=== PATIENT | female | born 2000 | race Caucasian/White ===

== ENCOUNTER 2020-12-07 13:15 | Inpatient (IN) | payer OTHER ==
[2020-12-07 14:10] LABS: #Eosinphils 0.3 10x3/uL (0.0-0.5); #Monocytes 0.8 10x3/uL (0.0-1.1); #Neutrophils 6.9 10x3/uL (1.5-8.4); %Basophils 0.4 % (0.0-2.0); %Eosinophils 2.7 % (0.0-6.0); %Lymphocytes 15.7 % (18.0-47.0); %Monocytes 8.3 % (0.0-10.0); %Neutrophils 72.6 % (40.0-75.0); Hemoglobin 11.8 g/dL (12.0-15.5); Mean Corpuscular Hemoglobin 30.2 pg (27.0-33.0); Mean Corpuscular Volume 91.6 fl (81.6-98.3); Platelet Count 278 10x3/uL (150-450); RBC Distribution Width 12.2 % (11.5-14.5); Red Blood Cell (RBC) Count 3.91 10x6/uL (3.90-5.03); White Blood Cell (WBC) Count 9.5 10x3/uL (3.5-10.5)
[2020-12-07 14:15] LABS: BHCG - Serum Negative (NEGATIVE); Pregs Control Background? CLEAR/WHITE (CLR/WHITE); Pregs Control Bar Appear? YES (CONTROL BAR)
[2020-12-07 14:22] LABS: ALT (SGPT) 10 U/L (8-55); AST (SGOT) 10 U/L (5-30); Albumin 3.7 g/dL (3.5-5.0); Alkaline Phosphatase 32 U/L (40-100); Anion Gap 13 mmol/L (10-20); BUN (Urea Nitrogen) 7 mg/dL (8.4-21.0); Bilirubin, Total 0.4 mg/dL (0.2-1.2); Calc. Creatinine Clearance 0 mL/min (70-130); Calcium 8.4 mg/dL (7.8-10.44); Carbon Dioxide 22 mmol/L (22-29); Chloride 110 mmol/L (98-107); Globulin 2.3 g/dL (2.4-3.5); Glucose 86 mg/dL (70-105); Lipase 345 U/L (8-78); Potassium 3.2 mmol/L (3.5-5.1); Sodium 142 mmol/L (136-145)
[2020-12-07] MEDS ORDERED: Fentanyl 100 MCG/2 ML VIAL ONE ×2 (15:21→16:17)
[2020-12-07] MEDS ORDERED: Ondansetron ODT 4 MG TAB PO PRN (16:10)
[2020-12-07] MEDS ORDERED: Ondansetron PF 4 MG/2 ML Vial IVP PRN (16:10)
[2020-12-07] MEDS ORDERED: HYDROcodone/Acetaminophen 10/325 mg Tablet PO PRN (16:10)
[2020-12-07] MEDS ORDERED: Sodium Chloride 0.9% 1,000 ML IV SCH (16:15)
[2020-12-07] MEDS ORDERED: Ketorolac Tromethamine 30 MG/ML VIAL ONE (18:25)
[2020-12-07] MEDS: Morphine 4 MG/ML VIAL SLOW IVP PRN (19:12)
[2020-12-07] MEDS ORDERED: Fentanyl 100 MCG/2 ML VIAL SLOW IVP PRN (19:21)
[2020-12-07 19:41] VITALS: BMI 21.5
[2020-12-07] MEDS: Ketorolac Tromethamine 30 MG/ML VIAL IVP PRN (20:37)
[2020-12-07] MEDS ORDERED: Famotidine 20 MG TAB PO SCH (21:00)
[2020-12-07] MEDS ORDERED: Potassium Chloride 20 MEQ in Premix Bag 1 BAG IVPB SCH (21:30)
[2020-12-07] MEDS ORDERED: busPIRone HCl 5 MG TAB PO SCH (21:30)
[2020-12-07] MEDS ORDERED: Pantoprazole 40 MG VIAL IVP SCH (21:30)
[2020-12-07] MEDS ORDERED: FLU VACC QS2021-22(6MOS UP)/PF 60 MCG/0.5 ML SYRINGE IM ONE (21:30)
[2020-12-07] MEDS: Pantoprazole 40 MG VIAL ONE ×2 (22:20→22:29)
[2020-12-07] MEDS: Sodium Chloride 0.9% 1,000 ML IV SCH (22:24)
[2020-12-08] MEDS ORDERED: Potassium Chloride 20 MEQ in Premix Bag 1 BAG IVPB SCH (04:00)
[2020-12-08] MEDS: Morphine 4 MG/ML VIAL SLOW IVP PRN ×5 (04:15→20:31)
[2020-12-08] MEDS: Ketorolac Tromethamine 30 MG/ML VIAL IVP PRN ×2 (05:30→23:45)
[2020-12-08 06:47] LABS: #Eosinphils 0.3 10x3/uL (0.0-0.5); #Monocytes 0.7 10x3/uL (0.0-1.1); #Neutrophils 6.2 10x3/uL (1.5-8.4); %Basophils 0.4 % (0.0-2.0); %Eosinophils 2.8 % (0.0-6.0); %Lymphocytes 21.8 % (18.0-47.0); %Monocytes 7.9 % (0.0-10.0); %Neutrophils 66.6 % (40.0-75.0); Hemoglobin 11.7 g/dL (12.0-15.5); Mean Corpuscular HGB CONC 32.8 g/dL (32.0-36.0); Mean Corpuscular Hemoglobin 30.5 pg (27.0-33.0); Platelet Count 228 10x3/uL (150-450); RBC Distribution Width 12.2 % (11.5-14.5); Red Blood Cell (RBC) Count 3.84 10x6/uL (3.90-5.03); White Blood Cell (WBC) Count 9.3 10x3/uL (3.5-10.5)
[2020-12-08] MEDS: Pantoprazole 40 MG VIAL IVP SCH (07:10)
[2020-12-08 07:26] LABS: Anion Gap 12 mmol/L (10-20); BUN (Urea Nitrogen) 6 mg/dL (8.4-21.0); Calc. Creatinine Clearance 152 mL/min (70-130); Calcium 8.3 mg/dL (7.8-10.44); Carbon Dioxide 22 mmol/L (22-29); Chloride 112 mmol/L (98-107); Glucose 88 mg/dL (70-105); Lipase 737 U/L (8-78); Sodium 142 mmol/L (136-145)
[2020-12-08] MEDS: Sodium Chloride 0.9% 1,000 ML IV SCH ×2 (07:31→10:00)
[2020-12-08] MEDS ORDERED: lamoTRIgine 25 MG TAB PO SCH ×2 (10:30→11:45)
[2020-12-08] MEDS ORDERED: busPIRone HCl 5 MG TAB PO SCH ×2 (11:00→11:30)
[2020-12-08] MEDS: Enoxaparin Sodium 40 MG/0.4 ML SYRINGE SC SCH (11:20)
[2020-12-08 14:45] LABS: SARS-CoV-2 PCR by NAA Not Detected (NotDetected)
[2020-12-08] MEDS: busPIRone HCl 5 MG TAB PO SCH (20:40)
[2020-12-09] MEDS: Morphine 4 MG/ML VIAL SLOW IVP PRN ×6 (00:28→23:37)
[2020-12-09] MEDS: Sodium Chloride 0.9% 1,000 ML IV SCH ×3 (03:08→11:50)
[2020-12-09] MEDS: Pantoprazole 40 MG VIAL IVP SCH (06:05)
[2020-12-09] MEDS: busPIRone HCl 5 MG TAB PO SCH ×2 (08:22→20:09)
[2020-12-09] MEDS: lamoTRIgine 25 MG TAB PO SCH (08:22)
[2020-12-09] MEDS: Enoxaparin Sodium 40 MG/0.4 ML SYRINGE SC SCH (08:22)
[2020-12-09 08:30] LABS: ALT (SGPT) Less than 6 U/L (8-55); AST (SGOT) 10 U/L (5-30); Alkaline Phosphatase 29 U/L (40-100); Anion Gap 10 mmol/L (10-20); BUN (Urea Nitrogen) 4 mg/dL (8.4-21.0); Bilirubin, Total 0.5 mg/dL (0.2-1.2); Calc. Creatinine Clearance 152 mL/min (70-130); Carbon Dioxide 25 mmol/L (22-29); Chloride 108 mmol/L (98-107); Globulin 1.6 g/dL (2.4-3.5); Glucose 85 mg/dL (70-105); Potassium 4.4 mmol/L (3.5-5.1); Protein, Total 4.6 g/dL (6.0-8.3); Sodium 139 mmol/L (136-145)
[2020-12-09 08:41] LABS: Lipase 1133 U/L (8-78)
[2020-12-09] MEDS ORDERED: Piperacillin/Tazobactam 3.375 GM in Sodium Chloride 0.9% 100 ML IVPB SCH ×2 (12:45→13:00)
[2020-12-09] MEDS: Piperacillin/Tazobactam 3.375 GM in Sodium Chloride 0.9% 100 ML IVPB SCH (20:08)
[2020-12-09] MEDS: Lactated Ringer's 1,000 ML IV SCH (20:21)
[2020-12-10] MEDS: Lactated Ringer's 1,000 ML IV SCH ×4 (01:15→21:16)
[2020-12-10] MEDS: Morphine 4 MG/ML VIAL SLOW IVP PRN ×4 (03:29→18:01)
[2020-12-10 04:28] LABS: #Eosinphils 0.3 10x3/uL (0.0-0.5); #Monocytes 0.5 10x3/uL (0.0-1.1); #Neutrophils 3.9 10x3/uL (1.5-8.4); %Basophils 0.3 % (0.0-2.0); %Eosinophils 4.2 % (0.0-6.0); %Lymphocytes 21.2 % (18.0-47.0); %Monocytes 8.7 % (0.0-10.0); %Neutrophils 65.4 % (40.0-75.0); Hemoglobin 11.2 g/dL (12.0-15.5); Mean Corpuscular HGB CONC 34.3 g/dL (32.0-36.0); Mean Corpuscular Hemoglobin 30.1 pg (27.0-33.0); Mean Corpuscular Volume 87.9 fl (81.6-98.3); Mean Platelet Volume 10.1 fl (7.4-10.4); Platelet Count 226 10x3/uL (150-450); RBC Distribution Width 11.8 % (11.5-14.5); Red Blood Cell (RBC) Count 3.72 10x6/uL (3.90-5.03)
[2020-12-10 04:39] LABS: Anion Gap 12 mmol/L (10-20); BUN (Urea Nitrogen) Less than 4 mg/dL (8.4-21.0); Calc. Creatinine Clearance 154 mL/min (70-130); Calcium 8.5 mg/dL (7.8-10.44); Carbon Dioxide 26 mmol/L (22-29); Chloride 106 mmol/L (98-107); Glucose 99 mg/dL (70-105); Potassium 3.8 mmol/L (3.5-5.1); Sodium 140 mmol/L (136-145)
[2020-12-10] MEDS: Piperacillin/Tazobactam 3.375 GM in Sodium Chloride 0.9% 100 ML IVPB SCH ×3 (05:13→21:40)
[2020-12-10] MEDS: Pantoprazole 40 MG VIAL IVP SCH (06:34)
[2020-12-10] MEDS: busPIRone HCl 5 MG TAB PO SCH ×2 (10:12→21:40)
[2020-12-10] MEDS: lamoTRIgine 25 MG TAB PO SCH (10:13)
[2020-12-10] MEDS: Enoxaparin Sodium 40 MG/0.4 ML SYRINGE SC SCH (10:13)
[2020-12-10] MEDS ORDERED: Ibuprofen 800 MG TAB PO PRN (17:36)
[2020-12-11] MEDS: Morphine 4 MG/ML VIAL SLOW IVP PRN ×2 (00:10→05:55)
[2020-12-11] MEDS: Lactated Ringer's 1,000 ML IV SCH ×3 (05:05→16:58)
[2020-12-11] MEDS: Piperacillin/Tazobactam 3.375 GM in Sodium Chloride 0.9% 100 ML IVPB SCH ×2 (05:28→13:40)
[2020-12-11] MEDS: Pantoprazole 40 MG VIAL IVP SCH (05:28)
[2020-12-11 05:57] LABS: ALT (SGPT) 8 U/L (8-55); AST (SGOT) 13 U/L (5-30); Albumin 3.3 g/dL (3.5-5.0); Alkaline Phosphatase 37 U/L (40-100); Anion Gap 11 mmol/L (10-20); BUN (Urea Nitrogen) Less than 4 mg/dL (8.4-21.0); Bilirubin, Total 0.3 mg/dL (0.2-1.2); Calc. Creatinine Clearance 128 mL/min (70-130); Calcium 8.8 mg/dL (7.8-10.44); Carbon Dioxide 27 mmol/L (22-29); Chloride 108 mmol/L (98-107); Globulin 2.2 g/dL (2.4-3.5); Glucose 99 mg/dL (70-105); Lipase 199 U/L (8-78); Potassium 3.4 mmol/L (3.5-5.1); Protein, Total 5.5 g/dL (6.0-8.3); Sodium 143 mmol/L (136-145)
[2020-12-11] MEDS: Enoxaparin Sodium 40 MG/0.4 ML SYRINGE SC SCH (08:52)
[2020-12-11] MEDS: busPIRone HCl 5 MG TAB PO SCH (08:52)
[2020-12-11] MEDS: lamoTRIgine 25 MG TAB PO SCH (08:52)
[2020-12-11 16:54] VITALS: BP 119/72; TEMP 99.5
== END 2020-12-11 19:54 | disposition home or self-care (01) | DRG 440 ==
LOC: CSHERS 13:15 → INTOOBSV 16:51 → CSHTELE 16:51 → OBSVTOIN 12-09 16:45
PROVIDERS: ADMIT Hospitalist; ATTEND Hospitalist
DX: K85.80 Other acute pancreatitis without necrosis or infection (principal); F41.1 Generalized anxiety disorder; K86.1 Other chronic pancreatitis; F31.9 Bipolar disorder, unspecified; E87.6 Hypokalemia; F41.0 Panic disorder [episodic paroxysmal anxiety]; G43.909 Migraine, unspecified, not intractable, without status migrainosus; Z20.822 Contact with and (suspected) exposure to COVID-19; Z79.899 Other long term (current) drug therapy
CPT/HCPCS: 36415; 74170; 76705; 80048; 80053; 82150; 83690; 83735; 84478; 84703; 85025; 85652; 86140; 87040; 96372; 96374; 96375; 96376; C9113; G0378; J1650; J1885; J2270; J2405; J2543; J3010; J3475; J3480; J3490; J7050; J7120; Q0162; U0003; U0005

== ENCOUNTER 2021-01-25 22:23 | Inpatient (IN) | payer OTHER ==
[2021-01-26] MEDS ORDERED: Morphine 4 MG/ML VIAL ONE (00:26)
[2021-01-26] MEDS ORDERED: Ketorolac Tromethamine 30 MG/ML VIAL ONE (00:27)
[2021-01-26] MEDS ORDERED: Ondansetron PF 4 MG/2 ML Vial ONE (00:27)
[2021-01-26 00:28] LABS: #Eosinphils 0.1 10x3/uL (0.0-0.5); %Basophils 0.3 % (0.0-2.0); %Eosinophils 1.1 % (0.0-6.0); %Monocytes 9.3 % (0.0-10.0); %Neutrophils 68.1 % (40.0-75.0); Hemoglobin 13.2 g/dL (12.0-15.5); Mean Corpuscular HGB CONC 33.8 g/dL (32.0-36.0); Mean Corpuscular Hemoglobin 29.7 pg (27.0-33.0); Mean Corpuscular Volume 88.1 fl (81.6-98.3); Mean Platelet Volume 10.4 fl (7.4-10.4); Platelet Count 291 10x3/uL (150-450); RBC Distribution Width 11.8 % (11.5-14.5); Red Blood Cell (RBC) Count 4.44 10x6/uL (3.90-5.03); White Blood Cell (WBC) Count 10.3 10x3/uL (3.5-10.5)
[2021-01-26 01:11] LABS: ALT (SGPT) 13 U/L (8-55); AST (SGOT) 14 U/L (5-34); Albumin 4.5 g/dL (3.5-5.0); Alkaline Phosphatase 42 U/L (40-100); Anion Gap 12 mmol/L (10-20); BUN (Urea Nitrogen) 10 mg/dL (7.0-18.7); Bilirubin, Total 0.6 mg/dL (0.2-1.2); Calc. Creatinine Clearance 0 mL/min (70-130); Calcium 9.3 mg/dL (7.8-10.44); Carbon Dioxide 26 mmol/L (22-29); Chloride 104 mmol/L (98-107); Globulin 3.1 g/dL (2.4-3.5); Glucose 66 mg/dL (70-105); Lipase 768 U/L (8-78); Potassium 3.1 mmol/L (3.5-5.1); Protein, Total 7.6 g/dL (6.0-8.3); Sodium 139 mmol/L (136-145)
[2021-01-26 01:12] LABS: BHCG - Serum Negative (NEGATIVE); Pregs Control Background? CLEAR/WHITE (CLR/WHITE); Pregs Control Bar Appear? YES (CONTROL BAR)
[2021-01-26] MEDS ORDERED: HYDROmorphone 0.5 MG/0.5 ML SYRINGE ONE (01:47)
[2021-01-26] MEDS ORDERED: Ondansetron PF 4 MG/2 ML Vial IVP PRN (01:57)
[2021-01-26 02:27] LABS: Magnesium 2.1 mg/dL (1.7-2.2)
[2021-01-26 02:43] VITALS: BMI 19.8
[2021-01-26] MEDS: D5 LR w/20 mEq KCL 1,000 ML IV SCH ×4 (03:05→20:33)
[2021-01-26] MEDS ORDERED: FLU VACC QS2021-22(6MOS UP)/PF 60 MCG/0.5 ML SYRINGE IM ONE (03:45)
[2021-01-26 04:06] LABS: ALT (SGPT) 8 U/L (8-55); AST (SGOT) 12 U/L (5-34); Albumin 3.6 g/dL (3.5-5.0); Alkaline Phosphatase 33 U/L (40-100); Anion Gap 10 mmol/L (10-20); Bilirubin, Total 0.4 mg/dL (0.2-1.2); Calc. Creatinine Clearance 120 mL/min (70-130); Calcium 7.8 mg/dL (7.8-10.44); Carbon Dioxide 24 mmol/L (22-29); Chloride 109 mmol/L (98-107); Glucose 106 mg/dL (70-105); Lipase 517 U/L (8-78); Potassium 3.7 mmol/L (3.5-5.1); Protein, Total 5.6 g/dL (6.0-8.3); Sodium 139 mmol/L (136-145)
[2021-01-26 04:09] LABS: Band 4 % (5-11); Eosinophils 2 % (0-10); Hemoglobin 10.9 g/dL (12.0-15.5); Lymphocytes 27 % (28-48); MDiff Complete? YES; Mean Corpuscular HGB CONC 33.9 g/dL (32.0-36.0); Mean Corpuscular Hemoglobin 30.1 pg (27.0-33.0); Mean Platelet Volume 10.2 fl (7.4-10.4); Monocytes 6 % (0-4); Neutrophil 60 % (31-61); Platelet Count 213 10x3/uL (150-450); Platelet Morphology Comment Appears Adequate; RBC Distribution Width 11.9 % (11.5-14.5); RBC Morphology Normal; Red Blood Cell (RBC) Count 3.62 10x6/uL (3.90-5.03); White Blood Cell (WBC) Count 9.3 10x3/uL (3.5-10.5)
[2021-01-26 04:23] LABS: BUN (Urea Nitrogen) 11 mg/dL (7.0-18.7)
[2021-01-26] MEDS: Ketorolac Tromethamine 30 MG/ML VIAL IVP PRN ×3 (05:51→19:40)
[2021-01-26] MEDS: Enoxaparin Sodium 40 MG/0.4 ML SYRINGE SC SCH (09:08)
[2021-01-26] MEDS: Morphine 4 MG/ML VIAL SLOW IVP PRN ×3 (09:54→20:29)
[2021-01-26] MEDS: Lorazepam 1 MG TAB PO PRN (15:20)
[2021-01-26 16:45] LABS: SARS-CoV-2 PCR by NAA Not Detected (NotDetected)
[2021-01-27] MEDS: Morphine 4 MG/ML VIAL SLOW IVP PRN ×6 (00:56→23:45)
[2021-01-27] MEDS: Lorazepam 1 MG TAB PO PRN ×2 (01:52→13:29)
[2021-01-27] MEDS: D5 LR w/20 mEq KCL 1,000 ML IV SCH ×5 (02:28→23:51)
[2021-01-27] MEDS: Ketorolac Tromethamine 30 MG/ML VIAL IVP PRN ×2 (02:30→21:58)
[2021-01-27 05:38] LABS: #Eosinphils 0.1 10x3/uL (0.0-0.5); #Monocytes 0.7 10x3/uL (0.0-1.1); #Neutrophils 5.8 10x3/uL (1.5-8.4); %Basophils 0.1 % (0.0-2.0); %Eosinophils 1.6 % (0.0-6.0); %Monocytes 9.6 % (0.0-10.0); %Neutrophils 75.4 % (40.0-75.0); Hemoglobin 12.5 g/dL (12.0-15.5); Mean Corpuscular HGB CONC 33.3 g/dL (32.0-36.0); Mean Corpuscular Hemoglobin 29.6 pg (27.0-33.0); Mean Corpuscular Volume 88.7 fl (81.6-98.3); Mean Platelet Volume 10.3 fl (7.4-10.4); Platelet Count 240 10x3/uL (150-450); RBC Distribution Width 11.8 % (11.5-14.5); Red Blood Cell (RBC) Count 4.23 10x6/uL (3.90-5.03); White Blood Cell (WBC) Count 7.7 10x3/uL (3.5-10.5)
[2021-01-27 06:04] LABS: ALT (SGPT) 8 U/L (8-55); AST (SGOT) 11 U/L (5-34); Albumin 3.5 g/dL (3.5-5.0); Alkaline Phosphatase 31 U/L (40-100); Anion Gap 10 mmol/L (10-20); BUN (Urea Nitrogen) 4 mg/dL (7.0-18.7); Bilirubin, Total 0.4 mg/dL (0.2-1.2); Calc. Creatinine Clearance 131 mL/min (70-130); Calcium 8.2 mg/dL (7.8-10.44); Carbon Dioxide 25 mmol/L (22-29); Chloride 107 mmol/L (98-107); Globulin 2.1 g/dL (2.4-3.5); Glucose 113 mg/dL (70-105); Magnesium 1.5 mg/dL (1.7-2.2); Potassium 3.7 mmol/L (3.5-5.1); Protein, Total 5.6 g/dL (6.0-8.3); Sodium 138 mmol/L (136-145)
[2021-01-27 06:17] LABS: Lipase 2459 U/L (8-78)
[2021-01-27] MEDS: Enoxaparin Sodium 40 MG/0.4 ML SYRINGE SC SCH (09:18)
[2021-01-28] MEDS: Lorazepam 0.5 MG TAB PO PRN ×2 (00:16→19:28)
[2021-01-28] MEDS: Morphine 4 MG/ML VIAL SLOW IVP PRN ×5 (03:10→20:20)
[2021-01-28 04:35] LABS: #Eosinphils 0.2 10x3/uL (0.0-0.5); #Monocytes 0.5 10x3/uL (0.0-1.1); #Neutrophils 2.1 10x3/uL (1.5-8.4); %Basophils 0.5 % (0.0-2.0); %Eosinophils 4.5 % (0.0-6.0); %Lymphocytes 31.9 % (18.0-47.0); %Monocytes 11.9 % (0.0-10.0); Hemoglobin 10.3 g/dL (12.0-15.5); Mean Corpuscular HGB CONC 34.2 g/dL (32.0-36.0); Mean Corpuscular Hemoglobin 30.2 pg (27.0-33.0); Mean Corpuscular Volume 88.3 fl (81.6-98.3); Mean Platelet Volume 10.1 fl (7.4-10.4); Platelet Count 179 10x3/uL (150-450); RBC Distribution Width 11.5 % (11.5-14.5); Red Blood Cell (RBC) Count 3.41 10x6/uL (3.90-5.03); White Blood Cell (WBC) Count 4.2 10x3/uL (3.5-10.5)
[2021-01-28 04:56] LABS: Anion Gap 10 mmol/L (10-20); BUN (Urea Nitrogen) Less than 4 mg/dL (7.0-18.7); Calc. Creatinine Clearance 146 mL/min (70-130); Calcium 8.2 mg/dL (7.8-10.44); Carbon Dioxide 25 mmol/L (22-29); Chloride 107 mmol/L (98-107); Cholesterol 97 mg/dl (< 200 Desired); Glucose 101 mg/dL (70-105); HDL Cholesterol 32 mg/dL (>60 Neg Risk); LDL Cholesterol, Calculated 56 mg/dL; Lipase 860 U/L (8-78); Potassium 3.8 mmol/L (3.5-5.1); Sodium 138 mmol/L (136-145); Triglycerides 45 mg/dL (Less than 150)
[2021-01-28] MEDS: Ketorolac Tromethamine 30 MG/ML VIAL IVP PRN ×3 (05:59→18:14)
[2021-01-28] MEDS: D5 LR w/20 mEq KCL 1,000 ML IV SCH ×3 (06:47→19:28)
[2021-01-28] MEDS: Enoxaparin Sodium 40 MG/0.4 ML SYRINGE SC SCH (08:16)
[2021-01-28] MEDS ORDERED: Electrolyte Replacement Protocol 1 EACH FS SCH (09:30)
[2021-01-28] MEDS ORDERED: Magnesium 2 GM/50 ML 2 GM in Premix Bag 1 BAG IVPB SCH ×2 (10:00→12:00)
[2021-01-28] MEDS ORDERED: Electrolyte Replacement Protocol FS PRN (10:00)
[2021-01-28 20:38] LABS: Magnesium 1.7 mg/dL (1.7-2.2)
[2021-01-29] MEDS: Ketorolac Tromethamine 30 MG/ML VIAL IVP PRN (00:01)
[2021-01-29] MEDS: Morphine 4 MG/ML VIAL SLOW IVP PRN ×5 (00:32→22:16)
[2021-01-29] MEDS: D5 LR w/20 mEq KCL 1,000 ML IV SCH ×5 (00:36→22:05)
[2021-01-29 03:53] LABS: #Eosinphils 0.2 10x3/uL (0.0-0.5); #Monocytes 0.5 10x3/uL (0.0-1.1); #Neutrophils 2.5 10x3/uL (1.5-8.4); %Basophils 0.6 % (0.0-2.0); %Eosinophils 4.5 % (0.0-6.0); %Lymphocytes 33.7 % (18.0-47.0); %Monocytes 10.5 % (0.0-10.0); %Neutrophils 50.7 % (40.0-75.0); Hemoglobin 10.7 g/dL (12.0-15.5); Mean Corpuscular HGB CONC 34.2 g/dL (32.0-36.0); Mean Corpuscular Hemoglobin 29.9 pg (27.0-33.0); Mean Corpuscular Volume 87.4 fl (81.6-98.3); Mean Platelet Volume 9.7 fl (7.4-10.4); Platelet Count 209 10x3/uL (150-450); RBC Distribution Width 11.4 % (11.5-14.5); Red Blood Cell (RBC) Count 3.58 10x6/uL (3.90-5.03); White Blood Cell (WBC) Count 4.9 10x3/uL (3.5-10.5)
[2021-01-29 04:04] LABS: Anion Gap 11 mmol/L (10-20); BUN (Urea Nitrogen) Less than 4 mg/dL (7.0-18.7); Calc. Creatinine Clearance 137 mL/min (70-130); Calcium 8.5 mg/dL (7.8-10.44); Carbon Dioxide 22 mmol/L (22-29); Chloride 107 mmol/L (98-107); Glucose 81 mg/dL (70-105); Lipase 320 U/L (8-78); Magnesium 2.1 mg/dL (1.7-2.2); Potassium 4.2 mmol/L (3.5-5.1); Sodium 136 mmol/L (136-145)
[2021-01-29] MEDS: Enoxaparin Sodium 40 MG/0.4 ML SYRINGE SC SCH (09:19)
[2021-01-29] MEDS ORDERED: Cyclobenzaprine 10 MG TAB PO PRN (10:26)
[2021-01-29] MEDS: traMADol HCl 50 MG TAB PO SCH ×3 (12:18→21:38)
[2021-01-29] MEDS: Lorazepam 0.5 MG TAB PO PRN (12:20)
[2021-01-30] MEDS: traMADol HCl 50 MG TAB PO SCH ×2 (04:47→09:23)
[2021-01-30] MEDS: D5 LR w/20 mEq KCL 1,000 ML IV SCH (04:48)
[2021-01-30] MEDS: Morphine 4 MG/ML VIAL SLOW IVP PRN (05:34)
[2021-01-30] MEDS: Enoxaparin Sodium 40 MG/0.4 ML SYRINGE SC SCH (09:25)
[2021-01-30 12:51] VITALS: BP 117/58; TEMP 99.3
== END 2021-01-30 12:10 | disposition home or self-care (01) | DRG 440 ==
LOC: CSHERS 22:23 → CSHTELE 22:24 → UNDOADMIN 22:24 → CSHTELE 01-26 01:57
PROVIDERS: ADMIT Family Medicine; ATTEND Hospitalist
DX: K85.90 Acute pancreatitis without necrosis or infection, unspecified (principal); F31.9 Bipolar disorder, unspecified; E87.6 Hypokalemia; F41.1 Generalized anxiety disorder; F11.21 Opioid dependence, in remission; K86.1 Other chronic pancreatitis; Z20.822 Contact with and (suspected) exposure to COVID-19; Z79.899 Other long term (current) drug therapy
CPT/HCPCS: 36415; 80048; 80053; 80061; 82150; 83690; 83735; 84703; 85007; 85025; 85027; 96374; 96375; J1170; J1650; J1885; J2270; J2405; J3475; J3480; U0003; U0005

== ENCOUNTER 2021-05-10 20:17 | Inpatient (IN) | payer OTHER ==
[2021-05-10 23:13] LABS: #Eosinphils 0.2 10x3/uL (0.0-0.5); #Monocytes 0.8 10x3/uL (0.0-1.1); %Basophils 0.4 % (0.0-2.0); %Eosinophils 1.9 % (0.0-6.0); %Lymphocytes 24.6 % (18.0-47.0); %Monocytes 7.3 % (0.0-10.0); %Neutrophils 65.4 % (40.0-75.0); Hemoglobin 14.2 g/dL (12.0-15.5); Mean Corpuscular HGB CONC 34.3 g/dL (32.0-36.0); Mean Corpuscular Hemoglobin 30.1 pg (27.0-33.0); Mean Corpuscular Volume 87.9 fl (81.6-98.3); Mean Platelet Volume 9.9 fl (7.4-10.4); Platelet Count 331 10x3/uL (150-450); Red Blood Cell (RBC) Count 4.71 10x6/uL (3.90-5.03); White Blood Cell (WBC) Count 10.7 10x3/uL (3.5-10.5)
[2021-05-10 23:20] LABS: BHCG - Serum Negative (NEGATIVE); Pregs Control Background? CLEAR/WHITE (CLR/WHITE); Pregs Control Bar Appear? YES (CONTROL BAR)
[2021-05-10 23:26] LABS: ALT (SGPT) 15 U/L (8-55); AST (SGOT) 17 U/L (5-34); Albumin 4.7 g/dL (3.5-5.0); Alkaline Phosphatase 38 U/L (40-100); Anion Gap 13 mmol/L (10-20); BUN (Urea Nitrogen) 5 mg/dL (7.0-18.7); Bilirubin, Total 0.3 mg/dL (0.2-1.2); Calc. Creatinine Clearance 0 mL/min (70-130); Calcium 9.6 mg/dL (7.8-10.44); Carbon Dioxide 27 mmol/L (22-29); Chloride 103 mmol/L (98-107); Globulin 3.2 g/dL (2.4-3.5); Glucose 93 mg/dL (70-105); Potassium 3.3 mmol/L (3.5-5.1); Protein, Total 7.9 g/dL (6.0-8.3); Sodium 140 mmol/L (136-145)
[2021-05-10 23:38] LABS: Lipase 1235 U/L (8-78)
[2021-05-11] MEDS ORDERED: Ondansetron PF 4 MG/2 ML Vial ONE (01:21)
[2021-05-11] MEDS ORDERED: HYDROmorphone 0.5 MG/0.5 ML SYRINGE ONE (01:22)
[2021-05-11] MEDS ORDERED: HYDROmorphone 0.5 MG/0.5 ML SYRINGE SLOW IVP SCH ×2 (02:45→06:15)
[2021-05-11] MEDS ORDERED: Morphine 2 MG/ML VIAL SLOW IVP PRN ×2 (03:13→16:30)
[2021-05-11] MEDS ORDERED: Sodium Chloride 0.9% 1,000 ML IV SCH (03:30)
[2021-05-11] MEDS: Morphine 4 MG/ML VIAL SLOW IVP PRN ×5 (03:51→22:34)
[2021-05-11 04:08] VITALS: BMI 18.8
[2021-05-11 04:18] LABS: Magnesium 1.8 mg/dL (1.7-2.2)
[2021-05-11] MEDS: Potassium Chloride 20 MEQ in Lactated Ringer's 1,000 ML IV SCH ×3 (04:36→18:23)
[2021-05-11] MEDS ORDERED: Electrolyte Replacement Protocol 1 EACH FS SCH (09:00)
[2021-05-11] MEDS ORDERED: Magnesium 2 GM/50 ML(in water) 2 GM in Premix Bag 1 BAG IVPB SCH (09:15)
[2021-05-11 09:24] LABS: #Eosinphils 0.2 10x3/uL (0.0-0.5); #Monocytes 0.5 10x3/uL (0.0-1.1); #Neutrophils 3.5 10x3/uL (1.5-8.4); %Basophils 0.3 % (0.0-2.0); %Eosinophils 2.6 % (0.0-6.0); %Lymphocytes 30.8 % (18.0-47.0); %Monocytes 8.6 % (0.0-10.0); %Neutrophils 57.4 % (40.0-75.0); Hemoglobin 11.6 g/dL (12.0-15.5); Mean Corpuscular Volume 88.1 fl (81.6-98.3); Red Blood Cell (RBC) Count 3.87 10x6/uL (3.90-5.03)
[2021-05-11 09:26] LABS: Platelet Count 222 10x3/uL (150-450)
[2021-05-11 09:43] LABS: ALT (SGPT) 8 U/L (8-55); AST (SGOT) 13 U/L (5-34); Albumin 3.6 g/dL (3.5-5.0); Alkaline Phosphatase 29 U/L (40-100); Anion Gap 10 mmol/L (10-20); BUN (Urea Nitrogen) 4 mg/dL (7.0-18.7); Bilirubin, Total 0.3 mg/dL (0.2-1.2); Calc. Creatinine Clearance 130 mL/min (70-130); Calcium 8.4 mg/dL (7.8-10.44); Carbon Dioxide 27 mmol/L (22-29); Cardiac Risk 2.8 (Less than 4.5); Chloride 109 mmol/L (98-107); Cholesterol 110 mg/dl (< 200 Desired); Globulin 2.2 g/dL (2.4-3.5); Glucose 104 mg/dL (70-105); HDL Cholesterol 39 mg/dL (>60 Neg Risk); LDL Cholesterol, Calculated 62 mg/dL; Potassium 3.9 mmol/L (3.5-5.1); Protein, Total 5.8 g/dL (6.0-8.3); Sodium 142 mmol/L (136-145); Triglycerides 47 mg/dL (Less than 150)
[2021-05-11] MEDS: Enoxaparin Sodium 40 MG/0.4 ML SYRINGE SC SCH (10:43)
[2021-05-11] MEDS: Ondansetron ODT 4 MG TAB PO PRN (12:17)
[2021-05-11 17:48] LABS: SARS-CoV-2 PCR by NAA Not Detected (NotDetected)
[2021-05-11 21:56] LABS: Bilirubin Neg (Negative); Blood, Urine Negative (Negative); Clarity Clear (Clear); Glucose, Urine (Dipstick) Normal (Negative); Ketone, Urine Negative (Negative); Leukocyte Negative (Negative); Nitrite Negative (Negative); Protein, Urine (Dipstick) Negative (Neg-Trace); Urobilinogen Normal mg/dL (Less than 2)
[2021-05-11 21:57] LABS: Urine Culture Reflex No No
[2021-05-11 22:05] LABS: Bacteria/HPF Rare-Few HPF (None Seen); RBC/HPF None Seen HPF (0-3); Squamous Epithelial 0-3 HPF (0-3); WBC/HPF None Seen HPF (0-3)
[2021-05-12] MEDS: Potassium Chloride 20 MEQ in Lactated Ringer's 1,000 ML IV SCH ×4 (00:10→15:43)
[2021-05-12] MEDS: Morphine 4 MG/ML VIAL SLOW IVP PRN ×8 (00:38→18:11)
[2021-05-12] MEDS ORDERED: Melatonin 3 MG TAB PO SCH (01:45)
[2021-05-12 05:32] LABS: #Eosinphils 0.2 10x3/uL (0.0-0.5); #Monocytes 0.5 10x3/uL (0.0-1.1); #Neutrophils 2.5 10x3/uL (1.5-8.4); %Basophils 0.4 % (0.0-2.0); %Eosinophils 3.3 % (0.0-6.0); %Lymphocytes 37.1 % (18.0-47.0); %Monocytes 9.2 % (0.0-10.0); %Neutrophils 49.6 % (40.0-75.0); Hemoglobin 11.5 g/dL (12.0-15.5); Mean Corpuscular Hemoglobin 30.4 pg (27.0-33.0); Mean Corpuscular Volume 89.4 fl (81.6-98.3); Mean Platelet Volume 10.6 fl (7.4-10.4); Platelet Count 201 10x3/uL (150-450); RBC Distribution Width 11.9 % (11.5-14.5); Red Blood Cell (RBC) Count 3.78 10x6/uL (3.90-5.03); White Blood Cell (WBC) Count 5.1 10x3/uL (3.5-10.5)
[2021-05-12 05:52] LABS: Anion Gap 14 mmol/L (10-20); BUN (Urea Nitrogen) 4 mg/dL (7.0-18.7); Calc. Creatinine Clearance 136 mL/min (70-130); Carbon Dioxide 25 mmol/L (22-29); Chloride 105 mmol/L (98-107); Glucose 68 mg/dL (70-105); Lipase 157 U/L (8-78); Magnesium 2.1 mg/dL (1.7-2.2); Potassium 4.7 mmol/L (3.5-5.1); Sodium 139 mmol/L (136-145)
[2021-05-12] MEDS: Ondansetron PF 4 MG/2 ML Vial IVP PRN (08:48)
[2021-05-12] MEDS: Enoxaparin Sodium 40 MG/0.4 ML SYRINGE SC SCH (09:09)
[2021-05-12] MEDS ORDERED: Potassium Chloride 20 MEQ in Lactated Ringer's 1,000 ML IV SCH (18:21)
[2021-05-12] MEDS ORDERED: diphenhydrAMINE 25 MG CAP PO PRN (18:22)
[2021-05-12] MEDS ORDERED: fentaNYL Citrate/PF 1,000 MCG, Admixture Fee 1 EACH in Sodium Chloride 0.9% 30 ML IV PRN (18:45)
[2021-05-12] MEDS: Acetaminophen 325 MG TAB PO PRN (19:32)
[2021-05-12] MEDS: Dextrose 5 %-0.45 % NaCl 1,000 ML IV SCH (19:37)
[2021-05-12] MEDS: Famotidine 20 MG TAB PO SCH (21:51)
[2021-05-12] MEDS: Ondansetron ODT 4 MG TAB PO PRN (23:51)
[2021-05-12] MEDS: Melatonin 3 MG TAB PO PRN (23:51)
[2021-05-13] MEDS: Morphine 4 MG/ML VIAL SLOW IVP PRN ×6 (01:59→17:31)
[2021-05-13] MEDS: Dextrose 5 %-0.45 % NaCl 1,000 ML IV SCH ×2 (08:41→20:09)
[2021-05-13] MEDS: Enoxaparin Sodium 40 MG/0.4 ML SYRINGE SC SCH (08:43)
[2021-05-13] MEDS: Famotidine 20 MG TAB PO SCH ×2 (08:43→20:07)
[2021-05-13] MEDS: Ondansetron PF 4 MG/2 ML Vial IVP PRN (11:31)
[2021-05-13] MEDS: Acetaminophen 325 MG TAB PO PRN (11:31)
[2021-05-13] MEDS ORDERED: Naloxone HCl 0.4 mg/ml Vial IV PRN (18:55)
[2021-05-13] MEDS ORDERED: Zolpidem Tartrate 5 MG TAB PO PRN (18:55)
[2021-05-13] MEDS ORDERED: diphenhydrAMINE 50 MG/ML VIAL IM PRN (18:55)
[2021-05-13] MEDS ORDERED: Ondansetron PF 4 MG/2 ML Vial IVP PRN (18:55)
[2021-05-13] MEDS ORDERED: diphenhydrAMINE 50 MG/ML VIAL IVP PRN (18:55)
[2021-05-13] MEDS ORDERED: Promethazine HCl 25 MG/ML VIAL IM PRN (18:55)
[2021-05-13] MEDS ORDERED: Communication Order-Pharmacy FS PRN (19:00)
[2021-05-13] MEDS: fentaNYL Citrate/PF 1,000 MCG in Sodium Chloride 0.9% 30 ML IV PRN (21:04)
[2021-05-13] MEDS: Melatonin 3 MG TAB PO PRN (21:34)
[2021-05-14] MEDS: diphenhydrAMINE 25 MG CAP PO PRN ×2 (02:17→21:08)
[2021-05-14 05:52] LABS: ALT (SGPT) 13 U/L (8-55); AST (SGOT) 16 U/L (5-34); Albumin 4.3 g/dL (3.5-5.0); Alkaline Phosphatase 39 U/L (40-100); Anion Gap 14 mmol/L (10-20); BUN (Urea Nitrogen) Less than 4 mg/dL (7.0-18.7); Bilirubin, Total 0.4 mg/dL (0.2-1.2); Calc. Creatinine Clearance 117 mL/min (70-130); Calcium 9.6 mg/dL (7.8-10.44); Carbon Dioxide 27 mmol/L (22-29); Chloride 101 mmol/L (98-107); Globulin 3.1 g/dL (2.4-3.5); Glucose 124 mg/dL (70-105); Magnesium 1.7 mg/dL (1.7-2.2); Phosphorus 4.6 mg/dL (2.3-4.7); Potassium 3.6 mmol/L (3.5-5.1); Protein, Total 7.4 g/dL (6.0-8.3); Sodium 138 mmol/L (136-145)
[2021-05-14] MEDS ORDERED: Magnesium 2 GM/50 ML(in water) 2 GM in Premix Bag 1 BAG IVPB SCH (06:00)
[2021-05-14] MEDS ORDERED: Lorazepam 0.5 MG TAB PO SCH (06:15)
[2021-05-14] MEDS: Dextrose 5 %-0.45 % NaCl 1,000 ML IV SCH ×2 (06:16→21:07)
[2021-05-14] MEDS: Famotidine 20 MG TAB PO SCH ×2 (08:24→21:10)
[2021-05-14] MEDS: Enoxaparin Sodium 40 MG/0.4 ML SYRINGE SC SCH (08:24)
[2021-05-14] MEDS: hydrOXYzine 25 MG TAB PO PRN ×2 (10:28→21:08)
[2021-05-14] MEDS: fentaNYL Citrate/PF 1,000 MCG in Sodium Chloride 0.9% 30 ML IV PRN (16:10)
[2021-05-14] MEDS: Acetaminophen 325 MG TAB PO PRN (21:08)
[2021-05-14] MEDS: Ondansetron ODT 4 MG TAB PO PRN (21:09)
[2021-05-14] MEDS: Melatonin 3 MG TAB PO PRN (21:10)
[2021-05-15 05:39] LABS: #Eosinphils 0.4 10x3/uL (0.0-0.5); #Monocytes 0.7 10x3/uL (0.0-1.1); #Neutrophils 2.5 10x3/uL (1.5-8.4); %Basophils 0.5 % (0.0-2.0); %Eosinophils 7.7 % (0.0-6.0); %Lymphocytes 34.9 % (18.0-47.0); %Monocytes 11.8 % (0.0-10.0); %Neutrophils 44.7 % (40.0-75.0); Mean Corpuscular Hemoglobin 30.6 pg (27.0-33.0); Mean Corpuscular Volume 84.9 fl (81.6-98.3); Mean Platelet Volume 9.7 fl (7.4-10.4); Platelet Count 266 10x3/uL (150-450); RBC Distribution Width 11.8 % (11.5-14.5); Red Blood Cell (RBC) Count 4.58 10x6/uL (3.90-5.03); White Blood Cell (WBC) Count 5.6 10x3/uL (3.5-10.5)
[2021-05-15 05:55] LABS: ALT (SGPT) 30 U/L (8-55); AST (SGOT) 32 U/L (5-34); Albumin 4.2 g/dL (3.5-5.0); Alkaline Phosphatase 38 U/L (40-100); Anion Gap 13 mmol/L (10-20); BUN (Urea Nitrogen) Less than 4 mg/dL (7.0-18.7); Bilirubin, Total 0.7 mg/dL (0.2-1.2); Calc. Creatinine Clearance 114 mL/min (70-130); Calcium 9.4 mg/dL (7.8-10.44); Carbon Dioxide 27 mmol/L (22-29); Chloride 102 mmol/L (98-107); Globulin 2.9 g/dL (2.4-3.5); Glucose 100 mg/dL (70-105); Lipase 85 U/L (8-78); Potassium 3.8 mmol/L (3.5-5.1); Protein, Total 7.1 g/dL (6.0-8.3); Sodium 138 mmol/L (136-145)
[2021-05-15] MEDS: hydrOXYzine 25 MG TAB PO PRN ×2 (08:18→15:42)
[2021-05-15] MEDS: Enoxaparin Sodium 40 MG/0.4 ML SYRINGE SC SCH (08:18)
[2021-05-15] MEDS: Famotidine 20 MG TAB PO SCH ×2 (08:18→20:08)
[2021-05-15] MEDS: fentaNYL Citrate/PF 1,000 MCG in Sodium Chloride 0.9% 30 ML IV PRN (11:24)
[2021-05-15] MEDS: Dextrose 5 %-0.45 % NaCl 1,000 ML IV SCH (11:26)
[2021-05-15] MEDS: HYDROcodone/Acetaminophen 7.5/325 mg Tablet PO PRN ×2 (16:50→20:45)
[2021-05-15 23:09] VITALS: BP 113/55; TEMP 99
== END 2021-05-15 21:17 | disposition home or self-care (01) | DRG 440 ==
LOC: CSHERS 20:17 → CSHTELE 05-11 03:02
PROVIDERS: ADMIT Family Medicine; ATTEND Internal Medicine
DX: K85.80 Other acute pancreatitis without necrosis or infection (principal); F41.9 Anxiety disorder, unspecified; F31.9 Bipolar disorder, unspecified; F11.21 Opioid dependence, in remission; G43.909 Migraine, unspecified, not intractable, without status migrainosus; F98.8 Other specified behavioral and emotional disorders with onset usually occurring in childhood and adolescence; Z20.822 Contact with and (suspected) exposure to COVID-19
CPT/HCPCS: 36415; 76705; 80048; 80053; 80061; 81001; 83690; 83735; 84100; 84703; 85025; 86301; 96374; 96375; J1170; J1650; J2270; J2405; J3010; J3475; J3480; J3490; J7042; J7050; J7120; Q0162; U0003; U0005